=== PATIENT | female | born 1955 | race Caucasian/White ===

== ENCOUNTER → 2016-05-12 | Outpatient (CLI) | payer BC | LOC: MC.RAD 08:16 | DX: Z12.31 Encounter for screening mammogram for malignant neoplasm of breast (principal) ==

== ENCOUNTER 2017-04-24 08:12 | Day surgery (SDC) | payer OTHER ==
[~2017-04-24] VITALS: Ht 165.1 cm; Wt 62.4 kg
[2017-04-24 08:41] VITALS: BP 123/83; PULSE 74; TEMP 98.6
[2017-04-24] MEDS ORDERED: SYNTHROID0.05 MG/TA PO (08:49)
[2017-04-24] MEDS ORDERED: SINGULAIR 110 MG/TAB PO (08:50)
[2017-04-24] MEDS ORDERED: VITAMIN D32000 IU PO (08:52)
[2017-04-24] MEDS ORDERED: XYZAL5 MG PO (08:53)
[2017-04-24] MEDS ORDERED: ASPIRIN E.C. 8181 MG PO (08:54)
[2017-04-24 10:40] VITALS: BP 123/70; PULSE 63; TEMP 97.4
[2017-04-24 10:55] VITALS: BP 114/77; PULSE 71
[2017-04-24 11:10] VITALS: BP 122/76; PULSE 70
== END 2017-04-24 11:35 | disposition home or self-care (01) ==
LOC: SDCO 08:12
DX: Z12.11 Encounter for screening for malignant neoplasm of colon (principal); K64.0 First degree hemorrhoids; K55.20 Angiodysplasia of colon without hemorrhage; E03.9 Hypothyroidism, unspecified; J45.909 Unspecified asthma, uncomplicated; Z90.710 Acquired absence of both cervix and uterus; Z80.0 Family history of malignant neoplasm of digestive organs; Z86.010 Personal history of colon polyps
CPT/HCPCS: OP; J2250; J3010; J7030

== ENCOUNTER → 2017-09-14 | Outpatient (CLI) | payer OTHER ==
[~2017-09-14] MED LIST: ASPIRIN E.C. 8181 MG PO; SINGULAIR 110 MG/TAB PO; SYNTHROID0.05 MG/TA PO; VITAMIN D32000 IU PO; XYZAL5 MG PO
== END ==
LOC: MC.RAD 10:51
DX: Z12.31 Encounter for screening mammogram for malignant neoplasm of breast (principal)

== ENCOUNTER → 2018-11-26 | Outpatient (CLI) | payer OTHER | LOC: MC.RAD 09:10 | DX: Z12.31 Encounter for screening mammogram for malignant neoplasm of breast (principal) ==